=== PATIENT | female | born 1930 | race Caucasian/White ===

== ENCOUNTER → 2017-07-17 | Outpatient (CLI) | payer MEDICARE, BC ==
[2017-07-17 14:14] LABS: BLOOD UREA NITROGEN 61 mg/dl (7-20)
[2017-07-17 14:14] LABS: CREATININE 1.82 mg/dl (0.44-1.00)
== END | disposition home or self-care (01) ==
LOC: LAB 13:07
DX: I65.23 Occlusion and stenosis of bilateral carotid arteries (principal)
CPT/HCPCS: 82565; 84520

== ENCOUNTER 2017-09-02 02:02 | Emergency (ER) | payer MEDICARE, BC ==
[2017-09-02 03:57] LABS: ADD MAN DIFF? NO
[2017-09-02 04:08] LABS: WHITE BLOOD COUNT 4.1 10^3/ul (4.8-10.8)
[2017-09-02 04:08] LABS: BASOPHILS % 0.5 % (0.0-2.0); EOSINOPHILS # 0.1 10^3/ul (0.0-0.5); EOSINOPHILS % 2.7 % (0.0-7.0); HEMATOCRIT 25.2 % (37.0-47.0); HEMOGLOBIN 7.8 g/dl (12.0-16.0); LYMPHOCYTES # 0.6 10^3/ul (0.8-2.9); LYMPHOCYTES % 15.5 % (15.0-51.0); MEAN CORPUSCULAR HEMOGLOBIN 30.8 pg (29.0-33.0); MEAN CORPUSCULAR VOLUME 99.6 fl (82.0-101.0); MEAN PLATELET VOLUME 10.5 fl (7.4-10.4); MONOCYTE # 0.4 10^3/ul (0.3-0.9); MONOCYTES % 10.2 % (0.0-11.0); NEUTROPHIL # 2.9 10^3/ul (1.6-7.5); NEUTROPHILS % 70.9 % (39.0-77.0); PLATELET COUNT 179 10^3/UL (140-415); RED BLOOD COUNT 2.53 10^6/ul (4.20-5.40); RED CELL DISTRIBUTION WIDTH 17.2 % (11.5-14.5)
[2017-09-02 04:39] LABS: ANION GAP 13 (8-16); BLOOD UREA NITROGEN 40 mg/dl (7-20); CALCIUM 9.2 mg/dl (8.4-10.2); CARBON DIOXIDE 33 mmol/L (21-31); CHLORIDE 105 mmol/L (97-110); CREATININE 1.61 mg/dl (0.44-1.00); GLUCOSE 98 mg/dl (70-220); POTASSIUM 4.2 mmol/L (3.5-5.1); SODIUM 147 mmol/L (135-144)
[2017-09-02 04:50] LABS: TROPONIN-I 0.025 ng/ml (0.000-0.120)
== END 2017-09-02 05:40 | disposition home or self-care (01) ==
LOC: E/R 02:02
DX: Z00.00 Encounter for general adult medical examination without abnormal findings (principal); R40.2142 Coma scale, eyes open, spontaneous, at arrival to emergency department; R40.2252 Coma scale, best verbal response, oriented, at arrival to emergency department; R40.2362 Coma scale, best motor response, obeys commands, at arrival to emergency department; I12.9 Hypertensive chronic kidney disease with stage 1 through stage 4 chronic kidney disease, or unspecified chronic kidney disease; N18.9 Chronic kidney disease, unspecified; J45.909 Unspecified asthma, uncomplicated; I50.9 Heart failure, unspecified; Z98.61 Coronary angioplasty status; Z79.82 Long term (current) use of aspirin; Z79.01 Long term (current) use of anticoagulants
CPT/HCPCS: 71045; 80048; 84484; 85025; 93005; 99285-25

== ENCOUNTER 2017-10-01 18:43 | Observation (INO) | payer MEDICARE, BC ==
[2017-10-01] MEDS: SOD CHLORIDE 0.9% 1,000 ML IV (19:32)
[2017-10-01 19:37] LABS: ADD MAN DIFF? NO
[2017-10-01 19:41] LABS: BASOPHILS % 0.3 % (0.0-2.0); EOSINOPHILS # 0.1 10^3/ul (0.0-0.5); EOSINOPHILS % 1.7 % (0.0-7.0); HEMATOCRIT 29.5 % (37.0-47.0); HEMOGLOBIN 9.1 g/dl (12.0-16.0); LYMPHOCYTES # 0.8 10^3/ul (0.8-2.9); LYMPHOCYTES % 13.6 % (15.0-51.0); MEAN CORPUSCULAR HEMOGLOBIN 30.7 pg (29.0-33.0); MEAN CORPUSCULAR HGB CONC 30.8 g/dl (32.0-37.0); MEAN CORPUSCULAR VOLUME 99.7 fl (82.0-101.0); MEAN PLATELET VOLUME 10.2 fl (7.4-10.4); MONOCYTE # 0.5 10^3/ul (0.3-0.9); MONOCYTES % 8.2 % (0.0-11.0); NEUTROPHIL # 4.5 10^3/ul (1.6-7.5); NEUTROPHILS % 75.9 % (39.0-77.0); PLATELET COUNT 165 10^3/UL (140-415); RED BLOOD COUNT 2.96 10^6/ul (4.20-5.40); RED CELL DISTRIBUTION WIDTH 15.2 % (11.5-14.5)
[2017-10-01] MEDS ORDERED: NITROGLYCERIN 50 MG/D5W (PMX) 250 ML IV (20:00)
[2017-10-01 20:01] LABS: ALANINE AMINOTRANSFERASE 25 IU/L (13-69); ALBUMIN/GLOBULIN RATIO 1.37; ALKALINE PHOSPHATASE 67 IU/L (42-121); ANION GAP 15 (8-16); ASPARTATE AMINO TRANSFERASE 19 IU/L (15-46); BILIRUBIN,INDIRECT 0.4 mg/dl (0-1.1); BILIRUBIN,TOTAL 0.4 mg/dl (0.2-1.3); BLOOD UREA NITROGEN 60 mg/dl (7-20); CALCIUM 9.3 mg/dl (8.4-10.2); CARBON DIOXIDE 21 mmol/L (21-31); CHLORIDE 110 mmol/L (97-110); CREATININE 1.71 mg/dl (0.44-1.00); GLUCOSE 91 mg/dl (70-220); LIPASE 202 U/L (23-300); POTASSIUM 5.2 mmol/L (3.5-5.1); SODIUM 141 mmol/L (135-144); TOTAL PROTEIN 6.9 g/dl (6.1-8.1)
[2017-10-01 20:13] LABS: TROPONIN-I < 0.012 ng/ml (0.000-0.120)
[2017-10-01] MEDS: ONDANSETRON 4 MG INJ IV (20:13)
[2017-10-01 20:24] LABS: PROTIME 24.1 Sec (11.9-14.9); PT RATIO 1.9
[2017-10-01 20:25] LABS: PARTIAL THROMBOPLASTIN TIME 31.9 Sec (25.0-35.0)
[2017-10-01 20:47] LABS: ADD UMIC YES; UR AMORPHOUS CRYSTAL FEW /HPF (NONE SEEN); UR ASCORBIC ACID NEGATIVE (NEGATIVE); UR BILIRUBIN (Dip) NEGATIVE (NEGATIVE); UR BLOOD (Dip) 2+ mg/dL (NEGATIVE); UR CLARITY CLEAR (CLEAR); UR COLOR STRAW (YELLOW); UR GLUCOSE (Dip) NEGATIVE (NEGATIVE); UR KETONES (Dip) NEGATIVE (NEGATIVE); UR LEUKOCYTE ESTERASE (Dip) NEGATIVE Leu/ul (NEGATIVE); UR NITRITE (Dip) NEGATIVE (NEGATIVE); UR RBC 1 /HPF (0-5); UR SPECIFIC GRAVITY (Dip) 1.008 (1.003-1.030); UR SQUAMOUS EPITHELIAL CELL FEW /HPF (FEW); UR TOTAL PROTEIN (Dip) NEGATIVE (NEGATIVE); UR UROBILINOGEN (Dip) NEGATIVE (NEGATIVE); UR WBC 2 /HPF (0-5)
[2017-10-02] MEDS ORDERED: ONDANSETRON 4 MG TAB PO
[2017-10-02] MEDS ORDERED: ACETAMINOPHEN 325 MG TAB PO
[2017-10-02] MEDS ORDERED: MAGNESIUM HYDROXIDE 30ML CUP PO
[2017-10-02] MEDS ORDERED: NACL 0.9% 3 ML SYG IV
[2017-10-02] MEDS ORDERED: LORAZEPAM 0.5 MG TAB PO
[2017-10-02] MEDS ORDERED: ZOLPIDEM 5 MG TAB PO
[2017-10-02] MEDS: SOD CHLORIDE 0.45% 1,000 ML IV ×2 (00:37→21:27)
[2017-10-02] MEDS: PANTOPRAZOLE 40 MG INJ IV ×2 (05:25→17:58)
[2017-10-02 07:37] LABS: ADD MAN DIFF? NO
[2017-10-02 07:39] LABS: WHITE BLOOD COUNT 4.2 10^3/ul (4.8-10.8)
[2017-10-02 07:40] LABS: BASOPHILS % 0.2 % (0.0-2.0); EOSINOPHILS # 0.1 10^3/ul (0.0-0.5); EOSINOPHILS % 2.1 % (0.0-7.0); HEMATOCRIT 27.8 % (37.0-47.0); HEMOGLOBIN 8.7 g/dl (12.0-16.0); LYMPHOCYTES % 22.6 % (15.0-51.0); MEAN CORPUSCULAR HEMOGLOBIN 30.9 pg (29.0-33.0); MEAN CORPUSCULAR HGB CONC 31.3 g/dl (32.0-37.0); MEAN CORPUSCULAR VOLUME 98.6 fl (82.0-101.0); MEAN PLATELET VOLUME 9.9 fl (7.4-10.4); MONOCYTE # 0.3 10^3/ul (0.3-0.9); MONOCYTES % 8.1 % (0.0-11.0); NEUTROPHIL # 2.8 10^3/ul (1.6-7.5); NEUTROPHILS % 66.8 % (39.0-77.0); PLATELET COUNT 140 10^3/UL (140-415); RED BLOOD COUNT 2.82 10^6/ul (4.20-5.40); RED CELL DISTRIBUTION WIDTH 15.2 % (11.5-14.5)
[2017-10-02 08:01] LABS: INR 1.87; PROTIME 21.9 Sec (11.9-14.9); PT RATIO 1.7
[2017-10-02 08:02] LABS: PARTIAL THROMBOPLASTIN TIME 33.8 Sec (25.0-35.0)
[2017-10-02 08:04] LABS: DIGOXIN 1.1 ng/ml (1.0-2.0)
[2017-10-02 08:43] LABS: ANION GAP 11 (8-16); BLOOD UREA NITROGEN 53 mg/dl (7-20); CALCIUM 8.9 mg/dl (8.4-10.2); CARBON DIOXIDE 23 mmol/L (21-31); CHLORIDE 115 mmol/L (97-110); GLUCOSE 87 mg/dl (70-220); MAGNESIUM 2.3 mg/dl (1.7-2.5); PHOSPHORUS 3.8 mg/dl (2.5-4.9); POTASSIUM 4.6 mmol/L (3.5-5.1); SODIUM 144 mmol/L (135-144)
[2017-10-02 09:10] LABS: THYROID STIMULATING HORMONE 0.499 MIU/L (0.465-4.680)
[2017-10-02] MEDS: IVABRADINE HCL 5 MG TABLET PO (09:37)
[2017-10-02] MEDS: CHOLECALCIFEROL 1,000 UNIT TAB PO (09:38)
[2017-10-02] MEDS: VALSARTAN 80 MG TAB PO (09:42)
[2017-10-02] MEDS: RIFAXIMIN 550 MG TAB PO ×2 (09:42→21:23)
[2017-10-02] MEDS: ATENOLOL 25 MG TAB PO (09:43)
[2017-10-02] MEDS: DIGOXIN 0.125 MG TAB PO (12:43)
[2017-10-02] MEDS: WARFARIN 5 MG TAB PO (17:58)
[2017-10-02] MEDS: LACTATED RINGER'S 250 ML IV (18:12)
[2017-10-02] MEDS: FOLIC ACID 0.4 MG TAB PO (21:00)
[2017-10-02] MEDS: DONEPEZIL 10 MG TAB PO (21:00)
[2017-10-02] MEDS: FERROUS SULFATE (60 MG/ML PO SYG) PO (21:22)
[2017-10-02] MEDS: LATANOPROST 0.005% 2.5 ML OPH BOTH EYES (21:23)
[2017-10-02] MEDS: TESTOSTERONE CYPIONATE 200 MG/ML INJ IM (21:25)
[2017-10-02] MEDS: CYANOCOBALAMIN 1000 MCG INJ SC (21:25)
[2017-10-02] MEDS: EPOETIN 4000 UNITS/ML (NON ESRD/NON ONCOLOGY) SC (21:27)
[2017-10-03] MEDS: SOD CHLORIDE 0.45% 1,000 ML IV (03:39)
[2017-10-03] MEDS: PANTOPRAZOLE 40 MG INJ IV (05:47)
[2017-10-03 07:13] LABS: ADD MAN DIFF? NO
[2017-10-03 07:15] LABS: BASOPHILS % 0.2 % (0.0-2.0); EOSINOPHILS # 0.1 10^3/ul (0.0-0.5); LYMPHOCYTES # 1.2 10^3/ul (0.8-2.9); LYMPHOCYTES % 22.5 % (15.0-51.0); MEAN CORPUSCULAR HEMOGLOBIN 30.9 pg (29.0-33.0); MEAN CORPUSCULAR VOLUME 99.7 fl (82.0-101.0); MEAN PLATELET VOLUME 10.3 fl (7.4-10.4); MONOCYTE # 0.4 10^3/ul (0.3-0.9); NEUTROPHIL # 3.5 10^3/ul (1.6-7.5); NEUTROPHILS % 67.9 % (39.0-77.0); PLATELET COUNT 141 10^3/UL (140-415); RED BLOOD COUNT 2.91 10^6/ul (4.20-5.40); RED CELL DISTRIBUTION WIDTH 15.2 % (11.5-14.5)
[2017-10-03 07:15] LABS: WHITE BLOOD COUNT 5.1 10^3/ul (4.8-10.8)
[2017-10-03 07:36] LABS: PROTIME 19.4 Sec (11.9-14.9); PT RATIO 1.5
[2017-10-03 07:37] LABS: PARTIAL THROMBOPLASTIN TIME 32.4 Sec (25.0-35.0)
[2017-10-03 07:50] LABS: ALANINE AMINOTRANSFERASE 24 IU/L (13-69); ALBUMIN 3.4 g/dl (3.3-4.9); ALBUMIN/GLOBULIN RATIO 1.36; ALKALINE PHOSPHATASE 65 IU/L (42-121); ANION GAP 15 (8-16); ASPARTATE AMINO TRANSFERASE 18 IU/L (15-46); BILIRUBIN,INDIRECT 0.2 mg/dl (0-1.1); BILIRUBIN,TOTAL 0.2 mg/dl (0.2-1.3); BLOOD UREA NITROGEN 42 mg/dl (7-20); CALCIUM 8.8 mg/dl (8.4-10.2); CARBON DIOXIDE 22 mmol/L (21-31); CHLORIDE 113 mmol/L (97-110); CREATININE 1.37 mg/dl (0.44-1.00); GLUCOSE 93 mg/dl (70-220); POTASSIUM 4.7 mmol/L (3.5-5.1); SODIUM 145 mmol/L (135-144); TOTAL PROTEIN 5.9 g/dl (6.1-8.1)
[2017-10-03] MEDS: FOLIC ACID 0.4 MG TAB PO (09:18)
[2017-10-03] MEDS: IVABRADINE HCL 5 MG TABLET PO (09:19)
[2017-10-03] MEDS: RIFAXIMIN 550 MG TAB PO (09:20)
[2017-10-03] MEDS: CHOLECALCIFEROL 1,000 UNIT TAB PO (09:20)
[2017-10-03] MEDS: VALSARTAN 80 MG TAB PO (09:20)
[2017-10-03] MEDS: DIGOXIN 0.125 MG TAB PO (15:54)
[2017-10-03] MEDS: WARFARIN 5 MG TAB PO (15:55)
[2017-10-03] MEDS: FOSFOMYCIN 3 GM PACKET PO (15:56)
[2017-10-05] MEDS ORDERED: WARFARIN 2.5 MG TAB PO (17:00)
== END 2017-10-03 16:10 | disposition home health service (06) ==
LOC: E/R 18:43 → MS4 21:16
DX: E86.0 Dehydration (principal); N17.9 Acute kidney failure, unspecified; I13.0 Hypertensive heart and chronic kidney disease with heart failure and stage 1 through stage 4 chronic kidney disease, or unspecified chronic kidney disease; E11.22 Type 2 diabetes mellitus with diabetic chronic kidney disease; I50.20 Unspecified systolic (congestive) heart failure; N18.9 Chronic kidney disease, unspecified; J44.9 Chronic obstructive pulmonary disease, unspecified; D64.9 Anemia, unspecified; R53.1 Weakness; R42 Dizziness and giddiness; R62.7 Adult failure to thrive; E03.9 Hypothyroidism, unspecified; I73.9 Peripheral vascular disease, unspecified; Z79.84 Long term (current) use of oral hypoglycemic drugs; Z79.82 Long term (current) use of aspirin; Z79.01 Long term (current) use of anticoagulants; J45.909 Unspecified asthma, uncomplicated; Z95.2 Presence of prosthetic heart valve; Z95.810 Presence of automatic (implantable) cardiac defibrillator; Z83.3 Family history of diabetes mellitus
CPT/HCPCS: 36415; 71045; 80048; 80053; 80162; 81001; 83690; 83735; 84100; 84443; 84484; 85025; 85610; 85730; 86850; 86900; 86901; 87086; 93005; 97110; 97116; 97161; 97167; 99285-25; G0378

== ENCOUNTER 2017-10-27 19:47 | Observation (INO) | payer MEDICARE, BC ==
[2017-10-27 22:15] LABS: ADD MAN DIFF? NO
[2017-10-27 22:19] LABS: BASOPHILS % 0.2 % (0.0-2.0); EOSINOPHILS # 0.1 10^3/ul (0.0-0.5); EOSINOPHILS % 1.5 % (0.0-7.0); HEMATOCRIT 26.4 % (37.0-47.0); HEMOGLOBIN 8.3 g/dl (12.0-16.0); LYMPHOCYTES % 17.4 % (15.0-51.0); MEAN CORPUSCULAR HEMOGLOBIN 30.3 pg (29.0-33.0); MEAN CORPUSCULAR HGB CONC 31.4 g/dl (32.0-37.0); MEAN CORPUSCULAR VOLUME 96.4 fl (82.0-101.0); MEAN PLATELET VOLUME 9.6 fl (7.4-10.4); MONOCYTE # 0.6 10^3/ul (0.3-0.9); MONOCYTES % 10.2 % (0.0-11.0); NEUTROPHIL # 3.9 10^3/ul (1.6-7.5); NEUTROPHILS % 70.3 % (39.0-77.0); PLATELET COUNT 216 10^3/UL (140-415); RED BLOOD COUNT 2.74 10^6/ul (4.20-5.40); RED CELL DISTRIBUTION WIDTH 14.5 % (11.5-14.5)
[2017-10-27 22:19] LABS: WHITE BLOOD COUNT 5.5 10^3/ul (4.8-10.8)
[2017-10-27 22:39] LABS: ALANINE AMINOTRANSFERASE 27 IU/L (13-69); ALBUMIN/GLOBULIN RATIO 1.42; ALKALINE PHOSPHATASE 61 IU/L (42-121); ANION GAP 18 (8-16); ASPARTATE AMINO TRANSFERASE 16 IU/L (15-46); BILIRUBIN,INDIRECT 0.2 mg/dl (0-1.1); BILIRUBIN,TOTAL 0.2 mg/dl (0.2-1.3); BLOOD UREA NITROGEN 63 mg/dl (7-20); CALCIUM 9.5 mg/dl (8.4-10.2); CARBON DIOXIDE 23 mmol/L (21-31); CHLORIDE 106 mmol/L (97-110); CREATININE 1.86 mg/dl (0.44-1.00); GLUCOSE 106 mg/dl (70-220); POTASSIUM 4.2 mmol/L (3.5-5.1); SODIUM 143 mmol/L (135-144); TOTAL PROTEIN 6.8 g/dl (6.1-8.1)
[2017-10-27 22:51] LABS: B-TYPE NATRIURETIC PEPTIDE 4280 PG/ML (0-450); TROPONIN-I < 0.010 ng/ml (0.000-0.120)
[2017-10-28] MEDS ORDERED: NACL 0.9% 3 ML SYG IV (00:30)
[2017-10-28] MEDS ORDERED: ONDANSETRON 4 MG INJ IV (00:30)
[2017-10-28] MEDS: SOD CHLORIDE 0.9% 1,000 ML IV (00:50)
[2017-10-28 06:18] LABS: PARTIAL THROMBOPLASTIN TIME 41.1 Sec (25.0-35.0); PROTIME 38.7 Sec (11.9-14.9)
[2017-10-28] MEDS: PANTOPRAZOLE (EC) 40 MG TAB PO (06:48)
[2017-10-28 06:57] LABS: CREATINE KINASE 26 IU/L (23-200)
[2017-10-28 06:59] LABS: CK INDEX 0.8; CK-MB < 0.22 ng/ml (0.0-2.4); TROPONIN-I < 0.010 ng/ml (0.000-0.120)
[2017-10-28] MEDS: CHOLECALCIFEROL 1,000 UNIT TAB PO (08:45)
[2017-10-28] MEDS: FOLIC ACID 0.4 MG TAB PO (08:46)
[2017-10-28] MEDS: IVABRADINE HCL 5 MG TABLET PO (08:46)
[2017-10-28] MEDS: FERROUS SULFATE (EC) 325 MG TAB PO (08:46)
[2017-10-28] MEDS: ASPIRIN (EC) 81 MG TAB PO (08:47)
[2017-10-28] MEDS: VALSARTAN 80 MG TAB PO (08:47)
[2017-10-28 10:18] LABS: CREATINE KINASE 23 IU/L (23-200)
[2017-10-28 10:19] LABS: CK-MB < 0.22 ng/ml (0.0-2.4); TROPONIN-I < 0.010 ng/ml (0.000-0.120)
[2017-10-28] MEDS: VITAMIN E 400 UNITS CAP PO (11:11)
[2017-10-28] MEDS: LACTATED RINGER'S 250 ML IV (13:09)
[2017-10-28] MEDS: DIGOXIN 0.125 MG TAB PO (13:15)
[2017-10-28] MEDS: LACTATED RINGER'S 1,000 ML IV (14:17)
[2017-10-28] MEDS ORDERED: WARFARIN 5 MG TAB PO (17:00)
[2017-10-28] MEDS: DONEPEZIL 10 MG TAB PO (22:08)
[2017-10-29] MEDS: LACTATED RINGER'S 1,000 ML IV ×2 (03:46→18:10)
[2017-10-29 05:22] LABS: ADD MAN DIFF? NO
[2017-10-29 05:26] LABS: WHITE BLOOD COUNT 4.7 10^3/ul (4.8-10.8)
[2017-10-29 05:26] LABS: BASOPHILS % 0.4 % (0.0-2.0); EOSINOPHILS # 0.1 10^3/ul (0.0-0.5); EOSINOPHILS % 1.1 % (0.0-7.0); HEMATOCRIT 24.8 % (37.0-47.0); HEMOGLOBIN 7.5 g/dl (12.0-16.0); LYMPHOCYTES # 0.7 10^3/ul (0.8-2.9); LYMPHOCYTES % 14.8 % (15.0-51.0); MEAN CORPUSCULAR HEMOGLOBIN 29.5 pg (29.0-33.0); MEAN CORPUSCULAR HGB CONC 30.2 g/dl (32.0-37.0); MEAN CORPUSCULAR VOLUME 97.6 fl (82.0-101.0); MEAN PLATELET VOLUME 10.1 fl (7.4-10.4); MONOCYTE # 0.4 10^3/ul (0.3-0.9); MONOCYTES % 9.2 % (0.0-11.0); NEUTROPHIL # 3.4 10^3/ul (1.6-7.5); NEUTROPHILS % 74.1 % (39.0-77.0); PLATELET COUNT 189 10^3/UL (140-415); RED BLOOD COUNT 2.54 10^6/ul (4.20-5.40); RED CELL DISTRIBUTION WIDTH 14.5 % (11.5-14.5)
[2017-10-29 05:43] LABS: ALANINE AMINOTRANSFERASE 25 IU/L (13-69); ALBUMIN 3.2 g/dl (3.3-4.9); ALBUMIN/GLOBULIN RATIO 1.28; ALKALINE PHOSPHATASE 51 IU/L (42-121); ANION GAP 9 (8-16); ASPARTATE AMINO TRANSFERASE 19 IU/L (15-46); BILIRUBIN,INDIRECT 0.2 mg/dl (0-1.1); BILIRUBIN,TOTAL 0.2 mg/dl (0.2-1.3); BLOOD UREA NITROGEN 54 mg/dl (7-20); CALCIUM 8.8 mg/dl (8.4-10.2); CARBON DIOXIDE 24 mmol/L (21-31); CHLORIDE 116 mmol/L (97-110); CREATININE 1.49 mg/dl (0.44-1.00); GLUCOSE 91 mg/dl (70-220); MAGNESIUM 2.3 mg/dl (1.7-2.5); PHOSPHORUS 3.2 mg/dl (2.5-4.9); POTASSIUM 4.3 mmol/L (3.5-5.1); SODIUM 145 mmol/L (135-144); TOTAL PROTEIN 5.7 g/dl (6.1-8.1)
[2017-10-29 05:49] LABS: INR 3.16; PROTIME 33.4 Sec (11.9-14.9); PT RATIO 2.6
[2017-10-29 06:51] LABS: DIGOXIN 1.2 ng/ml (1.0-2.0)
[2017-10-29] MEDS: PANTOPRAZOLE (EC) 40 MG TAB PO (07:07)
[2017-10-29 07:55] LABS: HEMOGLOBIN A1C 5.3 % (0-5.9)
[2017-10-29] MEDS: ASPIRIN (EC) 81 MG TAB PO (08:32)
[2017-10-29] MEDS: FERROUS SULFATE (EC) 325 MG TAB PO (08:32)
[2017-10-29] MEDS: IVABRADINE HCL 5 MG TABLET PO (08:33)
[2017-10-29] MEDS: LOSARTAN 50 MG TAB PO (08:33)
[2017-10-29] MEDS: FOLIC ACID 0.4 MG TAB PO (08:33)
[2017-10-29] MEDS: CHOLECALCIFEROL 1,000 UNIT TAB PO (08:34)
[2017-10-29] MEDS: VITAMIN E 400 UNITS CAP PO (09:00)
[2017-10-29] MEDS: DIGOXIN 0.125 MG TAB PO (13:15)
[2017-10-29] MEDS ORDERED: WARFARIN 2.5 MG TAB PO (17:00)
[2017-10-29] MEDS: WARFARIN 2.5 MG TAB PO (18:10)
[2017-10-29] MEDS: DOCUSATE SODIUM 100 MG CAP PO (18:14)
[2017-10-29] MEDS: DONEPEZIL 10 MG TAB PO (20:52)
[2017-10-30] MEDS: ACETAMINOPHEN 325 MG TAB PO (05:19)
[2017-10-30 05:42] LABS: INR 2.56; PROTIME 28.2 Sec (11.9-14.9); PT RATIO 2.2
[2017-10-30 05:46] LABS: ANION GAP 13 (8-16); BLOOD UREA NITROGEN 44 mg/dl (7-20); CALCIUM 8.5 mg/dl (8.4-10.2); CARBON DIOXIDE 23 mmol/L (21-31); CHLORIDE 112 mmol/L (97-110); CREATININE 1.45 mg/dl (0.44-1.00); GLUCOSE 96 mg/dl (70-220); POTASSIUM 4.2 mmol/L (3.5-5.1); SODIUM 144 mmol/L (135-144)
[2017-10-30] MEDS: LACTATED RINGER'S 1,000 ML IV (07:54)
[2017-10-30] MEDS: VITAMIN E 400 UNITS CAP PO (08:37)
[2017-10-30] MEDS: FOLIC ACID 0.4 MG TAB PO (08:38)
[2017-10-30] MEDS: FERROUS SULFATE (EC) 325 MG TAB PO (08:38)
[2017-10-30] MEDS: ASPIRIN (EC) 81 MG TAB PO (08:38)
[2017-10-30] MEDS: IVABRADINE HCL 5 MG TABLET PO (08:38)
[2017-10-30] MEDS: LOSARTAN 50 MG TAB PO (08:39)
[2017-10-30] MEDS: PANTOPRAZOLE (EC) 40 MG TAB PO (08:39)
[2017-10-30] MEDS: CHOLECALCIFEROL 1,000 UNIT TAB PO (08:40)
[2017-10-30] MEDS: NA PHOSPHATE/BIPHOS 133 ML ENEMA PR (10:30)
[2017-10-30] MEDS: WARFARIN 5 MG TAB PO (14:17)
[2017-10-30] MEDS: LACTULOSE 30ML CUP PO (14:17)
[2017-10-30] MEDS: TESTOSTERONE CYPIONATE 200 MG/ML INJ IM (15:29)
[2017-10-30] MEDS: CYANOCOBALAMIN 1000 MCG INJ IM (15:29)
[2017-10-30] MEDS: DIGOXIN 0.125 MG TAB PO (15:39)
[2017-10-30] MEDS ORDERED: LATANOPROST 0.005% 2.5 ML OPH BOTH EYES (21:00)
== END 2017-10-30 16:11 | disposition home or self-care (01) ==
LOC: MS1 23:54 → E/R 19:47 → MS1 10-28 23:16
DX: R62.7 Adult failure to thrive (principal); E86.0 Dehydration; N17.9 Acute kidney failure, unspecified; D64.9 Anemia, unspecified; R53.1 Weakness; I48.91 Unspecified atrial fibrillation; M19.90 Unspecified osteoarthritis, unspecified site; I13.0 Hypertensive heart and chronic kidney disease with heart failure and stage 1 through stage 4 chronic kidney disease, or unspecified chronic kidney disease; E11.22 Type 2 diabetes mellitus with diabetic chronic kidney disease; N18.2 Chronic kidney disease, stage 2 (mild); I50.20 Unspecified systolic (congestive) heart failure; E03.9 Hypothyroidism, unspecified; J44.9 Chronic obstructive pulmonary disease, unspecified; J45.909 Unspecified asthma, uncomplicated; Z79.82 Long term (current) use of aspirin; Z79.01 Long term (current) use of anticoagulants; Z95.2 Presence of prosthetic heart valve
CPT/HCPCS: 36415; 71045; 80048; 80053; 80162; 82550; 82553; 83036; 83735; 83880; 84100; 84443; 84484; 85025; 85610; 85730; 93005; 93970; 97116; 97161; 97530; 99285-25